=== PATIENT | male | born 1980 | race Caucasian/White ===

== ENCOUNTER 2021-01-07 01:16 | Emergency (ER) | payer BC ==
[~2021-01-07] VITALS: Ht 188 cm; Wt 117.9 kg
[2021-01-07 02:07] LABS: ABSOLUTE BASOPHILS 0.1 thou/uL (0.0-0.2); ABSOLUTE EOSINOPHILS 0.2 thou/uL (0.0-0.7); ABSOLUTE LYMPHOCYTES 3.4 thou/uL (0.8-5.3); ABSOLUTE MONOCYTES 0.8 thou/uL (0.0-1.2); ABSOLUTE NEUTROPHILS 6.6 thou/uL (1.6-8.1); BASOPHILS 0.6 %; EOSINOPHILS 1.8 %; HEMATOCRIT 47.4 % (42.0-52.0); HEMOGLOBIN 16.3 gm/dL (14.0-18.0); LYMPHOCYTES 30.5 %; MCH 28.8 pg (26.0-34.0); MCHC 34.4 g/dL (28.0-37.0); MCV 83.9 fL (80.0-100.0); MPV 8.7 fl. (7.2-11.1); NUCLEATED RBCS 0 /100WBC; PLATELET COUNT* 248 thou/uL (150-400); POLYS 60.1 %; RBC 5.65 mil/uL (4.50-6.00); RDW-CV 13.7 % (10.5-14.5)
[2021-01-07 02:12] LABS: CALCIUM 9.1 mg/dL (8.5-10.1); CREATININE 0.9 mg/dL (0.6-1.3)
[2021-01-07 02:17] LABS: ALBUMIN 4.3 g/dL (3.4-5.0); TOTAL BILIRUBIN 0.7 mg/dL (<0.1-1.0)
[2021-01-07 03:24] LABS: URINE BILIRUBIN NEGATIVE (Negative); URINE BLOOD NEGATIVE (Negative); URINE CLARITY CLEAR; URINE COLOR YELLOW; URINE GLUCOSE-RANDOM NEGATIVE (Negative); URINE KETONES 1+ (Negative); URINE LEUKOCYTES-REFLEX TRACE (Negative); URINE NITRITE-REFLEX NEGATIVE (Negative); URINE PROTEIN NEGATIVE (Negative); URINE UROBILINOGEN 0.2 E.U./dl (0.2-1.0)
[2021-01-07] MEDS ORDERED: ZOFRAN ODT4 MG PO (03:25)
[2021-01-07 03:30] VITALS: BP 133/77
[2021-01-07 03:43] LABS: BACTERIA-REFLEX 1-9 Few /HPF (None Seen); CASTS None Seen /LPF (None Seen); CRYSTALS None Seen /LPF (None Seen); SQUAMOUS 0-3 Few /LPF (0-3); URINE RBC 0-2 Rare /HPF (0-2); URINE WBC-REFLEX 0-5 Rare /HPF (0-5)
--- NOTE | 2021-01-07 11:51 | EKG ---
[place] [address] ELECTROCARDIOGRAM REPORT Name: JANE ROMAN Room: [facility]#: [id number] Admission: 01/07/21 Attend Phys: Discharge: 01/07/21 Date of : 80 Date of Service: 01/07/21143 Report #: [id number] THIS REPORT FOR: //name// [facility] ED Test Date: 2021-01-07 Test Time: 01:44:30 Pat Name: JANE BELLLUKE Department: Room: Gender: Intensive Care Unit Registered Nurse: LOLA : 1980 Requested By: Jessica Ordonez Order Number: [id number] MD: Otto Monroy Measurements Intervals Corea Rate: 67 P: 26 WY: 179 QRS: 21 QRSD: 96 T: 24 QT: 434 QTc: 458 Interpretive Statements Sinus rhythm No previous ECG available for comparison Electronically Signed On 01-07-2021 11:51:43 CDT by Otto Monroy [email or web address] <ELECTRONICALLY SIGNED> By: Otto Monroy MD, [facility] 01/07/21 1151 3 0144 Otto Monroy MD, FACC /EPI
== END 2021-01-07 03:30 | disposition home or self-care (01) ==
LOC: M.ERS 01:16
PROVIDERS: Emergency Medicine
DX: T67.9XXA Effect of heat and light, unspecified, initial encounter (principal); R11.2 Nausea with vomiting, unspecified; X30.XXXA Exposure to excessive natural heat, initial encounter; Y93.89 Activity, other specified; Y92.89 Other specified places as the place of occurrence of the external cause; Y99.8 Other external cause status